=== PATIENT | male | born 1950 | race Two or more races ===

== ENCOUNTER 2023-02-23 09:00 | Inpatient (IN) | payer OTHER ==
[~2023-02-23] VITALS: Ht 170.2 cm; Wt 75.7 kg
[2023-02-28] MEDS ORDERED: ELIQUIS2.5 MG PO (08:58)
[2023-02-28] MEDS ORDERED: PERCOCET 5-3251 EACH PO (08:58)
[2023-02-28] MEDS ORDERED: DUI500 PO (08:58)
[2023-03-01] MEDS ORDERED: ELIQUIS2.5 MG PO (16:36)
[2023-03-01] MEDS ORDERED: DUI500 PO (16:36)
[2023-03-01] MEDS ORDERED: PERCOCET 5-3251 EACH PO (16:36)
== END 2023-03-01 20:10 | disposition home or self-care (01) | DRG 470 ==
LOC: O/R 02-27 06:25 → SURH 02-27 06:25 → SURG 02-27 09:00 → SURH 02-27 19:28
PROVIDERS: ADMIT Orthopaedic Surgery; ATTEND Orthopaedic Surgery
PROC: 0SRD0J9 Replacement of Left Knee Joint with Synthetic Substitute, Cemented, Open Approach (ICD-10-PCS; principal; 2023-02-27 13:00)
DX: M17.12 Unilateral primary osteoarthritis, left knee (principal); M22.12 Recurrent subluxation of patella, left knee

== ENCOUNTER 2023-12-23 09:29 | Emergency (ER) | payer OTHER ==
[~2023-12-23] VITALS: Ht 170.2 cm; Wt 73.5 kg
[~2023-12-23 09:29] MED LIST: DUI500 PO; ELIQUIS2.5 MG PO; PERCOCET 5-3251 EACH PO
[2023-12-23] MEDS ORDERED: ACETAMINOPHEN 500 MG GEL..CAP PO ONE (10:30)
[2023-12-23] MEDS ORDERED: CLINDAMYCIN PHOSPHATE 150 MG/ML (600mg) IM ONE (10:30)
== END 2023-12-23 11:05 | disposition home or self-care (01) ==
LOC: ER 09:30
DX: L03.90 Cellulitis, unspecified (principal)
CPT/HCPCS: 96372; 99282; J3490